=== PATIENT | male | born 1975 | race African-American/Black ===

== ENCOUNTER 2019-01-14 09:04 | Inpatient (IN) | payer OTHER ==
[2019-01-14 09:22] VITALS: BMI 23.0
[2019-01-14] MEDS ORDERED: morphine CARPU-JECT 4 MG/1 ML DISP.SYRIN IVPUSH ONE ×3 (09:42→14:18)
--- NOTE | 2019-01-14 09:50 | PDOC ---
History of Present Illness - General Chief Complaint: Pain, Acute Stated Complaint: ABDOMINAL PAIN Time Seen by Provider: 01/14/19 09:27 History Source: Patient Exam Limitations: No Limitations - History of Present Illness Initial Comments: 01/14/19 09:43 43 y/o male with PHS of asthma presents to the ED with severe abdominal pain. Patient states that the pain started around 3-4 days ago out of nowhere. he describes the pain as sharp and excruciating a 12/10 to be exact. He has never had pain like this before- he denies eating anything out of the ordinary. He denies any radiation of the pain just states that it is all throughout his entire abdomen. He has had some episodes of intermittent nausea and vomiting. He has tried taking some advil with very little relief. He has never seen a GI doctor before. He denies any alcohol use however he does smoke marijuana daily and did use K2 (last time being 2 months ago), however,there are multiple rehab reports in the EMR.He states that when he urinates his stream "splits" and it has been this way for the past few months. He denies any sick contacts or recent travel and has had no recent illnesses. 01/14/19 09:50 Timing/Duration: getting worse Severity: severe Associated Symptoms: reports: diaphoresis, nausea/vomiting. denies: chest pain Past History - Travel Traveled outside of the country in the last 30 days: No Close contact w/someone who was outside of country & ill: No - Past Medical History Allergies/Adverse Reactions: Allergies Allergy/AdvReac Type Severity Reaction Status Date / Time No Known Allergies Allergy Verified 01/14/19 09:10 Home Medications: Ambulatory Orders NK [No Known Home Medication] 01/14/19 Asthma: Yes COPD: No - Family Disease History Family Disease History: Diabetes: Father, Mother - Suicide/Smoking/Psychosocial Hx Smoking History: Current every day smoker Have you smoked in the past 12 months: Yes Number of Cigarettes Smoked Daily: 5 Information on smoking cessation initiated: Yes Hx Alcohol Use: No Drug/Substance Use Hx: Yes Substance Use Type: Marijuana (daily) Hx Substance Use Treatment: Yes Review of Systems - Review of Systems Able to Perform ROS?: Yes Is the patient limited Turkish proficient: No Constitutional: Yes: Diaphoresis Respiratory: No: Cough, Shortness of Breath Cardiac (ROS): No: Chest Pain, Syncope ABD/GI: Yes: Diarrhea, Vomiting, Other (severe abdominal pain) : Yes: Other (urine stream splits ). No: Burning, Dysuria Musculoskeletal: No: Muscle Pain Neurological: No: Headache, Dizziness *Physical Exam - Vital Signs Last Vital Signs Temp Pulse Resp BP Pulse Ox 98.1 F 83 22 H 152/109 H 100 01/14/19 09:15 01/14/19 09:15 01/14/19 09:15 01/14/19 09:15 01/14/19 09:15 - Physical Exam General Appearance: Yes: Severe Distress Neck: positive: Normal Thyroid Respiratory/Chest: positive: Lungs Clear, Normal Breath Sounds Cardiovascular: positive: Regular Rhythm, Regular Rate, S1, S2 Gastrointestinal/Abdominal: positive: Tender (severe tenderness), Guarding Musculoskeletal: negative: CVA Tenderness Integumentary: positive: Diaphoresis Neurologic: positive: Fully Oriented, Alert ED Treatment Course - LABORATORY CBC & Chemistry Diagram: 01/14/19 09:40 01/14/19 09:40 - RADIOLOGY Radiology Studies Ordered: Category Date Time Status ABDOMEN & PELVIS CT WITH CONTR [CT] Stat CT Scan 01/14/19 09:41 Ordered Medical Decision Making - Medical Decision Making 01/14/19 09:55 cbc/cmp/lipase/lactcic acid/ UA and utox ab/pelvis CT zofran/pepcid/malox/morphine 01/14/19 09:56 *DC/Admit/Observation/Transfer Diagnosis at time of Disposition: Pneumoperitoneum, Perforated abdominal viscus - Discharge Dispostion Condition at time of disposition: Guarded - Referrals - Patient Instructions - Post Discharge Activity
[2019-01-14] MEDS ORDERED: FAMOTIDINE 20 MG/50 ML IVPB 20 MG/50 ML MG IVPB ONE ×2 (09:55→10:05)
[2019-01-14] MEDS ORDERED: ONDANSETRON 4 MG/2 ML VIAL IVPUSH ONE (09:55)
[2019-01-14] MEDS ORDERED: ONDANSETRON 4 MG/2 ML VIAL ONE (09:56)
[2019-01-14] MEDS ORDERED: MAG HYDROX/AL HYDROX/SIMETH -MYLANTA- ORAL SUSPENSION PO ONE (09:56)
[2019-01-14] MEDS ORDERED: morphine SULFATE 4 MG/ML VIAL ONE ×2 (09:56→14:54)
[2019-01-14] MEDS ORDERED: MAG HYDROX/AL HYDROX/SIMETH 30 ML UNIT-DOSE CUP ONE (09:56)
--- NOTE | 2019-01-14 10:06 | PDOC ---
Attending Attestation - Resident Resident Name: Shirley Osborne - ED Attending Attestation I have performed the following: I have examined & evaluated the patient, The case was reviewed & discussed with the resident, I agree w/resident's findings & plan, Exceptions are as noted - HPI HPI: 01/14/19 10:01 43 yo male h/o substance abuse ( K2 and THC ) currently relasped last smoked yesterday here today c/o diffuse abd pain. states pain is constant severe, since last pm mostly upper abd. did have 2 episodes of n/v today. all nonbloody nonbilious. no change to bm. no mod factors. describes subjective f/c. also c/ o mild intermittent dysuria and that urine " splits" has been happening for 2 mo. states was recently tested for HIV and was negative. no h/;o renal colic. no etoh use. denies other drug use or withdrawal. - Physicial Exam PE: 01/14/19 10:06 awake alert moaning in pain, mildly diaphoretic. dry mucous membranes. lungs clear bilaterlaly heart rrr no abd soft mild epigastric ttp. no rebound no guarding. ext wwp no edema. no rash no edema. - Medical Decision Making 01/14/19 10:07 43 yo male here with c/o abd pain. differential renal colic, gastritis, withdrawal syndrome, uti pyelo, pancreatitis. biliary colic. plan focused ED us , renal and gb and aorta. ct a/p labs pain control pepcid and zofran. focused ED us renal indication: abd pain/ dysuria. focused ED us renal, no hydronephrosis bilaterally . normal size kidneys . bladder nondistended. impression: normal kidneys focused ED US aorta, indication abd pain aorta scanned in two planes. measurements taken at proximal near celiac trunk, mid aorta, and distal aorta. all measurements <2cm. no AAA normal aorta. gallbladder scanned in two planes, indication epigastric pain. no stones. no wall thickening no wall edema. normal cbd. neg sonographic rodríguez' s. cbd measured 2 mm anterior gallbladder wall was 3 mm. impression: normal gallbladder.
[2019-01-14 10:12] LABS: BASO % 0.5 % (0-2.0); EOS % 0.7 % (0-4.5); HEMATOCRIT 43.1 % (35.4-49); HEMOGLOBIN 14.3 GM/dL (11.7-16.9); LYMPH % 17.2 % (8-40); MCH 29.3 pg (25.7-33.7); MCHC 33.2 g/dl (32.0-35.9); MEAN CELL VOLUME 88.4 fl (80-96); MEAN PLT VOLUME 7.7 fl (7.5-11.1); MONO % 5.7 % (3.8-10.2); NEUT % 75.9 % (42.8-82.8); PLATELET COUNT 274 K/MM3 (134-434); RBC 4.88 M/mm3 (4.00-5.60); RDW 15.8 % (11.9-15.9); WHITE BLOOD COUNT 7.2 K/mm3 (4.0-10.0)
[2019-01-14 10:51] LABS: ALBUMIN 3.6 g/dl (3.4-5.0); ALK PHOS 81 U/L (45-117); ANION GAP 4 MMOL/L (8-16); BILIRUBIN,TOTAL 0.3 mg/dL (0.2-1); BLOOD UREA NITROGEN 17 mg/dL (7-18); CALCIUM 8.9 mg/dL (8.5-10.1); CHLORIDE 103 mmol/L (98-107); CO2 29 mmol/L (21-32); CREATININE 1.2 mg/dL (0.55-1.3); GLUCOSE,RANDOM 121 mg/dL (74-106); POTASSIUM 4.5 mmol/L (3.5-5.1); SGOT/AST 20 U/L (15-37); SGPT/ALT 28 U/L (13-61); SODIUM 136 mmol/L (136-145); TOT PROT 7.5 g/dl (6.4-8.2)
[2019-01-14 10:53] LABS: EPI CELLS 2.5 /HPF (0-5/HPF); PH,URINE 5.5 (5.0-8.0); URINE APPEARANCE CLEAR; URINE BACTERIA 7.8 /hpf (NEGATIVE); URINE BILIRUBIN NEGATIVE (NEGATIVE); URINE CASTS 17 /lpf (0-8); URINE COLOR DK YELLOW; URINE GLUCOSE (UA) NEGATIVE (NEGATIVE); URINE KETONE TRACE (NEGATIVE); URINE LEUK ESTERASE NEGATIVE (NEGATIVE); URINE NITRITE NEGATIVE (NEGATIVE); URINE PROTEIN 1+ (NEGATIVE); URINE RBC 4 /hpf (0-4); URINE WBC 2 /hpf (0-5)
[2019-01-14 11:21] LABS: COCAINE, UR NEGATIVE ng/ml (CUTOFF=300); METHADONE, UR NEGATIVE ng/ml (CUTOFF=300); PHENCYCLIDINE,URINE NEGATIVE ng/ml (CUTOFF=25); URINE AMPHETAMINES NEGATIVE ng/ml (CUTOFF=500); URINE BARBITURATES NEGATIVE ng/ml (CUTOFF=200); URINE BENZODIAZEPINES NEGATIVE ng/ml (CUTOFF=200); YEAST NONE SEEN (NEGATIVE)
[2019-01-14 11:26] LABS: OPIATES, URI POSITIVE ng/ml (CUTOFF=300)
[2019-01-14] MEDS ORDERED: SODIUM CHLORIDE 1,000 ML IV STA (11:38)
--- NOTE | 2019-01-14 12:10 | EKG ---
Test Reason : Blood Pressure : / mmHG Vent. Rate : 072 BPM Atrial Rate : 072 BPM P-R Int : 156 ms QRS Dur : 098 ms QT Int : 368 ms P-R-T Axes : 082 041 064 degrees QTc Int : 402 ms NORMAL SINUS RHYTHM INCOMPLETE RIGHT BUNDLE BRANCH BLOCK BORDERLINE ECG NO PREVIOUS ECGS AVAILABLE Confirmed by OSWALD MEDINA, JUJU ([id number]) on 01/14/2019 12:10:16 PM Referred By: Confirmed By:JUJU AKERS MD
[2019-01-14] MEDS ORDERED: SODIUM CHLORIDE 0.9% 500 ML INFUS.BAG IV ONE (12:39)
[2019-01-14] MEDS ORDERED: PIPERACILLIN/TAZOB 4.5 GM 4.5 GM in DEXTROSE 5%-WATER 100 ML IVPB ONE (12:40)
[2019-01-14] MEDS ORDERED: SODIUM CHLORIDE 1,000 ML IV SCH ×2 (12:45→20:43)
[2019-01-14] MEDS ORDERED: PIPERACILLIN/TAZOB 4.5 GM 4.5 GM/100 ML BAG IVPB ONE (12:51)
--- NOTE | 2019-01-14 13:15 | PDOC ---
*Physical Exam - Vital Signs Last Vital Signs Temp Pulse Resp BP Pulse Ox 98.0 F 165 H 18 137/99 96 01/14/19 13:05 01/14/19 13:05 01/14/19 13:05 01/14/19 13:05 01/14/19 13:05 - Physical Exam General Appearance: Yes: Severe Distress HEENT: positive: Normal ENT Inspection Neck: positive: Supple Respiratory/Chest: positive: Lungs Clear Cardiovascular: positive: Regular Rhythm, Regular Rate, S1, S2 Vascular Pulses: Dorsalis-Pedis (R): 2+, Doralis-Pedis (L): 2+ Gastrointestinal/Abdominal: positive: Tender (Diffusely), Guarding. negative: Rebound Rectal Exam: positive: deferred Lymphatic: negative: Adenopathy Musculoskeletal: positive: Normal Inspection Extremity: positive: Normal Capillary Refill, Normal Inspection Integumentary: positive: Normal Color, Dry, Warm Neurologic: positive: Fully Oriented, Alert, Normal Mood/Affect, Normal Response ED Treatment Course - LABORATORY CBC & Chemistry Diagram: 01/14/19 09:40 01/14/19 09:40 - ADDITIONAL ORDERS Additional order review: Laboratory Results 01/14/19 01/14/19 01/14/19 10:35 10:35 10:04 Sodium Potassium Chloride Carbon Dioxide Anion Gap BUN Creatinine Creat Clearance w eGFR Random Glucose Lactic Acid 2.3 H* Calcium Total Bilirubin AST ALT Alkaline Phosphatase Total Protein Albumin Lipase Urine Color Dk yellow Urine Appearance Clear Urine pH 5.5 Ur Specific [place] 1.039 H Urine Protein 1+ H Urine Glucose (UA) Negative Urine Ketones Trace H Urine Blood Negative Urine Nitrite Negative Urine Bilirubin Negative Urine Urobilinogen 1.0 Ur Leukocyte Esterase Negative Urine WBC (Auto) 2 Urine RBC (Auto) 4 Urine Casts (Auto) 17 U Epithel Cells (Auto) 2.5 Urine Bacteria (Auto) 7.8 Urine Yeast (Auto) None seen Opiates Screen Positive A* Methadone Screen Negative Barbiturate Screen Negative Phencyclidine Screen Negative Ur Amphetamines Screen Negative MDMA (Ecstasy) Screen Negative Benzodiazepines Screen Negative Cocaine Screen Negative U Marijuana (THC) Screen Positive A* 01/14/19 01/14/19 10:04 09:40 Sodium 136 Potassium 4.5 Chloride 103 Carbon Dioxide 29 Anion Gap 4 L BUN 17 Creatinine 1.2 Creat Clearance w eGFR 65.77 Random Glucose 121 H Lactic Acid Calcium 8.9 Total Bilirubin 0.3 AST 20 ALT 28 Alkaline Phosphatase 81 Total Protein 7.5 Albumin 3.6 Lipase 186 Urine Color Urine Appearance Urine pH Ur Specific [place] Urine Protein Urine Glucose (UA) Urine Ketones Urine Blood Urine Nitrite Urine Bilirubin Urine Urobilinogen Ur Leukocyte Esterase Urine WBC (Auto) Urine RBC (Auto) Urine Casts (Auto) U Epithel Cells (Auto) Urine Bacteria (Auto) Urine Yeast (Auto) Opiates Screen Methadone Screen Barbiturate Screen Phencyclidine Screen Ur Amphetamines Screen MDMA (Ecstasy) Screen Benzodiazepines Screen Cocaine Screen U Marijuana (THC) Screen 01/14/19 09:40 RBC 4.88 MCV 88.4 MCHC 33.2 RDW 15.8 MPV 7.7 Neutrophils % 75.9 Lymphocytes % 17.2 Monocytes % 5.7 Eosinophils % 0.7 Basophils % 0.5 - Medications Given in the ED: ED Medications Discontinued Medications Generic Name Dose Route Start Last Admin Trade Name Freq PRN Reason Stop Dose Admin Al Hydroxide/Mg Hydroxide 30 ml 01/14/19 09:56 01/14/19 10:03 Mylanta Suspension - PO 01/14/19 09:57 30 ml ONCE ONE Administration Famotidine/Sodium Chloride 20 mg in 50 mls @ 100 mls/hr 01/14/19 09:55 10:30 Pepcid 20 Mg Premixed Ivpb - IVPB 01/14/19 10:24 100 mls/hr ONCE ONE Administration Sodium Chloride 1,000 mls @ 1,000 mls/hr 01/14/19 11:38 01/14/19 11:42 Normal Saline - IV 01/14/19 12:37 1,000 mls/hr ASDIR STA Administration Piperacillin Sod/Tazobactam 100 mls @ 200 mls/hr 01/14/19 12:40 01/14/19 13: 01 Sod 4.5 gm/ Dextrose IVPB 01/14/19 13:09 200 mls/hr ONCE ONE Administration Protocol Morphine Sulfate 4 mg 01/14/19 09:42 01/14/19 10:03 Morphine Injection - IVPUSH 01/14/19 09:43 4 mg ONCE ONE Administration Morphine Sulfate 4 mg 01/14/19 12:36 01/14/19 12:50 Morphine Injection - IVPUSH 01/14/19 12:37 4 mg ONCE ONE Administration Ondansetron HCl 4 mg 01/14/19 09:55 01/14/19 10:03 Zofran Injection IVPUSH 01/14/19 09:56 4 mg ONCE ONE Administration Sodium Chloride 1,000 ml 01/14/19 12:39 01/14/19 12:50 Normal Saline - IV 01/14/19 12:40 1,000 ml ONCE ONE Administration Medical Decision Making - Medical Decision Making Patient signed out to me pending CTAP CT[facility] shows [facility] Making patient NPO, giving morphine for pain control, hydrating with IV fluids, and giving zosyn Will admit patient to hospital NG tube placed in patient X-ray ordered to confirm placement. *DC/Admit/Observation/Transfer Diagnosis at time of Disposition: Pneumoperitoneum, Perforated abdominal viscus - Discharge Dispostion Condition at time of disposition: Guarded Decision to Admit order: Yes - Referrals - Patient Instructions - Post Discharge Activity
[2019-01-14 13:42] LABS: INR 1.06 (0.83-1.09); PROTHROMBIN TIME (PATIENT) 12.5 SEC (9.7-13.0)
[2019-01-14 13:44] LABS: ACTIVATED PTT 28.2 SECONDS (25.2-36.5)
[2019-01-14] MEDS ORDERED: ONDANSETRON 4 MG/2 ML VIAL IVPUSH PRN ×2 (14:33→20:43)
[2019-01-14] MEDS ORDERED: LACTATED RINGERS SOLUTION 1,000 ML IV SCH (14:45)
[2019-01-14] MEDS ORDERED: HYDROmorphone *PCA* 10MG/50ML DISP.SYRIN PCA SCH (14:45)
[2019-01-14] MEDS ORDERED: SUCCINYLCHOLINE CHLORIDE 200 MG/10 ML VIAL ONE ×2 (15:15→18:41)
[2019-01-14] MEDS ORDERED: LIDOCAINE HCL/PF 2% SDV 5ML VIAL ONE ×2 (15:15→19:28)
[2019-01-14] MEDS ORDERED: ROCURONIUM BROMIDE 50 MG/5 ML VIAL ONE ×2 (15:16→18:41)
--- NOTE | 2019-01-14 15:42 | HP ---
Admitting History and Physical - Primary Care Physician PCP: Abdi Basilio - Admission Chief Complaint: came in for abdominal pain History of Present Illness: 43 yo male h/o substance abuse ( K2 and THC ) currently relasped last smoked yesterday here today c/o diffuse abd pain. states pain is constant severe, since last pm mostly upper abd. did have 2 episodes of n/v today. all nonbloody nonbilious. no change to bm. no mod factors. describes subjective f/c. also c/ o mild intermittent dysuria and that urine " splits" has been happening for 2 mo. states was recently tested for HIV and was negative. no h/;o renal colic. no etoh use. denies other drug use or withdrawal. per patient he has been having intermittent abdominal pain for a few days but today he had severe excruciating abdominal pain so came to the ER . in ER ct scan pneumoperitoneum Morphine, zosyn,ivf, famotidine History Source: Patient - Smoking History Smoking history: Current every day smoker Have you smoked in the past 12 months: Yes Aproximately how many cigarettes per day: 5 - Alcohol/Substance Use Hx Alcohol Use: No Home Medications - Allergies Allergies/Adverse Reactions: Allergies Allergy/AdvReac Type Severity Reaction Status Date / Time No Known Allergies Allergy Verified 01/14/19 09:10 - Home Medications Home Medications: Ambulatory Orders NK [No Known Home Medication] 01/14/19 Review of Systems - Review of Systems Gastrointestinal: reports: Abdominal Pain Physical Examination Vital Signs: Vital Signs Temperature 99.4 F 01/14/19 14:54 Pulse Rate 71 01/14/19 14:54 Respiratory Rate 18 01/14/19 14:54 Blood Pressure 151/97 01/14/19 14:54 O2 Sat by Pulse Oximetry (%) 98 01/14/19 15:04 Constitutional: Yes: Mild Distress Cardiovascular: Yes: Regular Rate and Rhythm, S1, S2 Respiratory: Yes: CTA Bilaterally Gastrointestinal: Yes: Other (guarding rigidity) Edema: No Neurological: Yes: Alert, Oriented Labs: CBC, BMP 01/14/19 09:40 01/14/19 09:40 Imaging - Results Cat Scan: Report Reviewed (pneumoperitoneum) Problem List - Problems (1) Perforated abdominal viscus Assessment/Plan: NPO ng tube to low suction iv pain control iv abx scd surgical consult- surgery OR today spoke to dr Fracisco velasco lactic acid iv abx- zosyn ID consult Code(s): [id number] -
[2019-01-14] MEDS ORDERED: morphine SULFATE 4 MG/ML VIAL IVPUSH PRN ×2 (15:51→20:43)
[2019-01-14] MEDS ORDERED: MIDAZOLAM HCL 2 MG/2 ML SINGLE DOSE VIAL ONE (17:46)
[2019-01-14] MEDS ORDERED: fentaNYL CITRATE 250 MCG/5 ML VIAL ONE (17:46)
[2019-01-14] MEDS ORDERED: PROPOFOL 20 ML ONE ×3 (17:46→18:41)
[2019-01-14] MEDS ORDERED: KETOROLAC TROMETHAMINE 30 MG/1 ML VIAL ONE ×2 (17:49→20:17)
[2019-01-14] MEDS ORDERED: DEXAMETHASONE SOD PHOSPHATE 4 MG/1 ML VIAL ONE ×2 (17:49→18:40)
[2019-01-14] MEDS ORDERED: PIPERACILLIN/TAZOB 4.5 GM 4.5 GM in DEXTROSE 5%-WATER 100 ML IVPB SCH ×2 (18:00→21:00)
--- NOTE | 2019-01-14 18:00 | CONSULT ---
Consult Consult Specialty:: Surgery: Referred by:: Reason for Consultation:: Perotonitis, perforated viscus. - History of Present Illness Chief Complaint: C/O Sudden onset of abdominal pain this morning after he celebrated his drug withdrawal, program by using marijuana. Pain is predominantly in the upper abdomen. Pain was sudden and progressed rapidly to diiffuse pain. - History Source History Provided By: Patient Limitations to Obtaining History: No Limitations - Alcohol/Substance Use Hx Alcohol Use: No - Smoking History Smoking history: Current every day smoker Have you smoked in the past 12 months: Yes Aproximately how many cigarettes per day: 5 Home Medications - Allergies Allergies/Adverse Reactions: Allergies Allergy/AdvReac Type Severity Reaction Status Date / Time No Known Allergies Allergy Verified 01/14/19 09:10 - Home Medications Home Medications: Ambulatory Orders NK [No Known Home Medication] 01/14/19 Physical Exam Vital Signs: Vital Signs Temperature 100.6 F H 01/14/19 16:14 Pulse Rate 84 01/14/19 15:42 Respiratory Rate 18 01/14/19 15:58 Blood Pressure 149/91 01/14/19 15:42 O2 Sat by Pulse Oximetry (%) 97 01/14/19 15:58 Gastrointestinal: Yes: Other (Diffusely tender and rigid, no abdominal distention. No hernia.) Labs: CBC, BMP 01/14/19 09:40 01/14/19 09:40 Imaging - Results Cat Scan: Report Reviewed, Image Reviewed (Free air in the peritoneal cavity, with fluid in abdomen.) Problem List - Problems (1) Perforated abdominal viscus Code(s): OEX4273 - (2) Pneumoperitoneum Code(s): K66.8 - OTHER SPECIFIED DISORDERS OF PERITONEUM (3) Acute abdomen Code(s): R10.0 - ACUTE ABDOMEN (4) Peritonitis Code(s): K65.9 - PERITONITIS, UNSPECIFIED Assessment/Plan Plan : Hydration , IV fluids, antibiotics. Laparascopy , possible laparotomy , possible colectomy / colostomy. Patient is explained of the procedure , dependent upon the pathological findings. Risks , benefits and complications expalined, including persistent infection , wound dehiscence etc.
[2019-01-14] MEDS ORDERED: KETAMINE HCL 200 MG/20 ML VIAL ONE (19:28)
[2019-01-14] MEDS ORDERED: NEOSTIGMINE METHYLSULFATE 0.5 MG/ML - 10 ML MDV ONE (19:30)
[2019-01-14] MEDS ORDERED: GLYCOPYRROLATE 0.2 MG/1 ML VIAL ONE (19:31)
--- NOTE | 2019-01-14 20:01 | OP ---
Operative Note - Note: Operative Date: 01/14/19 Pre-Operative Diagnosis: Perforated viscus. Peritonitis. Pneumoperitoneum. Operation: Diagnostic laparoscopy ,. Laparotomy , plication and omental overlay of perforated duodenal ulcer and peritoneal wash out. Findings: Perforated ulcer on anterior wall of the first portion of the duodenum. Intrabadominal abscesses. Post-Operative Diagnosis: Other (Perforation of anterior wall of the first portion of the duodenum, peritonitis with intraabdominal abscess.) Surgeon: Ibrahima Yap Scientist/Engineer: Kamran Hurst Anesthesia: General Specimens Removed: Fluid from peritoneal cavity for culture. Estimated Blood Loss (mls): 25 Drains & Tubes with Location: No.10 BRIAN drain left in right subhepatic space. Operative Report Dictated: Yes
[2019-01-14] MEDS ORDERED: ACETAMINOPHEN INJECTION 100 ML IVPB ONE (20:17)
[2019-01-14] MEDS ORDERED: HYDROmorphone *PCA* 10MG/50ML DISP.SYRIN PCA ONE (20:26)
[2019-01-14] MEDS: HYDROmorphone *PCA* 10MG/50ML DISP.SYRIN PCA SCH (20:30)
--- NOTE | 2019-01-14 21:03 | SURG ---
Surgery Respooler Note Respooler: Kamran Hurst PA-C Date of Service: 01/14/19 Diagnosis: Pneumoperitoneum secondary to perforated viscous Procedure: Diagnostic laparoscopy, converted to laparotomy, plication and omental overlay of perforated duodenal ulcer and peritoneal wash out. I was present for the entirety of the operative procedure. For further detail, please refer to operative report. Visit type - Case Type Case Type: ED Admission - Emergency Emergency Visit: Yes ED Registration Date: 01/14/19 Care time: The patient presented to the Emergency Department on the above date and was hospitalized for further evaluation of their emergent condition. - New patient This patient is new to me today: Yes Date on this admission: 01/14/19
[2019-01-14] MEDS: LACTATED RINGERS SOLUTION 1,000 ML IV SCH (22:20)
[2019-01-15] MEDS ORDERED: PIPERACILLIN/TAZOBACTAM 4.5 GM VIAL IVPB ONE ×3 (02:43→18:04)
[2019-01-15] MEDS ORDERED: DEXTROSE 5%-WATER 100 ML IVPB ONE ×3 (02:43→18:04)
[2019-01-15] MEDS: PIPERACILLIN/TAZOB 4.5 GM 4.5 GM in DEXTROSE 5%-WATER 100 ML IVPB SCH ×3 (02:46→18:06)
[2019-01-15 08:18] LABS: HEMATOCRIT 37.6 % (35.4-49); HEMOGLOBIN 12.5 GM/dL (11.7-16.9); MCH 28.6 pg (25.7-33.7); MCHC 33.2 g/dl (32.0-35.9); MEAN CELL VOLUME 86.4 fl (80-96); MEAN PLT VOLUME 7.8 fl (7.5-11.1); PLATELET COUNT 278 K/MM3 (134-434); RBC 4.35 M/mm3 (4.00-5.60); WHITE BLOOD COUNT 9.9 K/mm3 (4.0-10.0)
[2019-01-15 08:27] LABS: INR 1.54 (0.83-1.09); PROTHROMBIN TIME (PATIENT) 18.2 SEC (9.7-13.0)
[2019-01-15 08:44] LABS: ALBUMIN 2.4 g/dl (3.4-5.0); ALK PHOS 48 U/L (45-117); ANION GAP 5 MMOL/L (8-16); BILIRUBIN,TOTAL 0.8 mg/dL (0.2-1); BLOOD UREA NITROGEN 20 mg/dL (7-18); CALCIUM 8.3 mg/dL (8.5-10.1); CHLORIDE 105 mmol/L (98-107); CO2 27 mmol/L (21-32); CREATININE 1.1 mg/dL (0.55-1.3); GLUCOSE,RANDOM 92 mg/dL (74-106); MAGNESIUM 1.9 mg/dL (1.8-2.4); PHOSPHOROUS 3.8 mg/dL (2.5-4.9); POTASSIUM 4.8 mmol/L (3.5-5.1); SGOT/AST 44 U/L (15-37); SGPT/ALT 47 U/L (13-61); SODIUM 136 mmol/L (136-145); TOT PROT 5.2 g/dl (6.4-8.2)
--- NOTE | 2019-01-15 11:15 | PN ---
Progress Note (short form) - Note Progress Note: ID CONSULT DICTATED POD#1 EXPLORATORY LAP/REPAIR OF PERFORATED DU PERITONITIS AWAIT C/S CONTINUE ZOSYN
--- NOTE | 2019-01-15 11:55 | CONS ---
INFECTIOUS DISEASE CONSULTATION DATE OF CONSULTATION: DATE OF DICTATION: 01/15/2019 HISTORY OF PRESENT ILLNESS: The patient is a 43-year-old male who is evaluated for peritonitis. He was admitted to the hospital with a 2-3-day history of abdominal pain. The patient reports smoking marijuana to celebrate his 2-month anniversary of abstinence. He developed worsening abdominal pain associated with nausea. He presented to the emergency room where a CAT scan of the abdomen and pelvis was performed and showed pneumoperitoneum. The patient was taken to the operating room on January 14, 2019, where he underwent an exploratory laparotomy. Operative findings included a perforated duodenal ulcer, pneumoperitoneum, and peritonitis. His hospital course has been complicated by low-grade fever. At the present time, he is awake and alert. He is postoperative day number 1. He has an NG tube in place. PAST MEDICAL HISTORY: Positive for asthma and polysubstance abuse. ALLERGIES: No known allergies. LABORATORY DATA: White count 9.9, platelets 278, BUN 20, creatinine 1.1, lactic acid 2.3. Urinalysis: White cells 2; culture is pending. PHYSICAL EXAMINATION: General: On exam, he is awake and alert, no acute distress. Vital Signs: T-maximum 100.6, blood pressure 139/64, pulse 84, regular, respirations 19 per minute. Eyes: Sclerae are anicteric. Throat: NG tube is in place. Heart: Heart sounds S1, S2. Lungs: Clear. Abdomen: Soft. Positive incisional tenderness. Surgical dressing in place postoperatively. Extremities: Negative for edema. IMPRESSION: 1. Postoperative day number 1 exploratory laparotomy for perforated duodenal ulcer. 2. Peritonitis. 3. History of polysubstance abuse. Await cultures. Empiric coverage gastrointestinal pathogens with Zosyn. Surgical followup. HIV testing, if status not documented. SYMONE THEODORE M.D. [id number]
--- NOTE | 2019-01-15 12:03 | PN ---
Progress Note, Physician - Current Medication List Current Medications: Active Medications Hydromorphone HCl (Dilaudid Sailor -) 10 mg OPEN TENTER OPERATOR OPEN TENTER OPERATOR JAYCE; Protocol Stop: 01/21/19 14:33 Last Admin: 01/14/19 20:30 Dose: 10 mg Lactated Ringer's (Lactated Ringers Solution) 1,000 mls @ 75 mls/hr IV ASDIR JAYCE Last Admin: 01/14/19 22:20 Dose: 250 mls Piperacillin Sod/Tazobactam (Sod 4.5 gm/ Dextrose) 100 mls @ 200 mls/hr IVPB Q8H-IV JAYCE; Protocol Last Admin: 01/15/19 02:46 Dose: 200 mls/hr - Objective Vital Signs: Vital Signs Temperature 98.5 F 01/15/19 11:00 Pulse Rate 75 01/15/19 11:00 Respiratory Rate 16 01/15/19 11:00 Blood Pressure 141/97 01/15/19 11:00 O2 Sat by Pulse Oximetry (%) 99 01/15/19 08:44 Labs: CBC, BMP 01/15/19 07:00 01/15/19 07:00 INR, PTT INR 1.54 (0.83-1.09) H 01/15/19 07:00 Problem List - Problems (1) Perforated abdominal viscus Code(s): [id number] - (2) Pneumoperitoneum Code(s): K66.8 - OTHER SPECIFIED DISORDERS OF PERITONEUM (3) Acute abdomen Code(s): R10.0 - ACUTE ABDOMEN (4) Peritonitis Code(s): K65.9 - PERITONITIS, UNSPECIFIED Assessment/Plan Surgery: Patient is alert and oriented. He is informed of the operative findings. Drain is draining serous fluid. Abdomen is soft . Continue antibiotics. IV fluids. Monitor electrolytes. Will D/C Oliveira catheter.
[2019-01-15] MEDS ORDERED: PIPERACILLIN/TAZOB 4.5 GM 4.5 GM in DEXTROSE 5%-WATER 100 ML IVPB SCH (15:00)
--- NOTE | 2019-01-15 15:11 | PN ---
Progress Note, Physician Chief Complaint: Pneumoperitoneum Perforated Abdominal Viscus Abdominal Pain S/p History of Present Illness: Previous notes and events reviewed awake and alert NAD patient states pain is controlled denies BM or passing flatus POD #1 diagnostic laparoscopy, laparotomy, plication and omental overlay of perforated duodenal ulcer - Current Medication List Current Medications: Active Medications Hydromorphone HCl (Dilaudid Metal Roofer -) 10 mg BENCH INSPECTOR BENCH INSPECTOR JAYCE; Protocol Stop: 01/21/19 14:33 Last Admin: 01/14/19 20:30 Dose: 10 mg Lactated Ringer's (Lactated Ringers Solution) 1,000 mls @ 75 mls/hr IV ASDIR JAYCE Last Admin: 01/14/19 22:20 Dose: 250 mls Piperacillin Sod/Tazobactam (Sod 4.5 gm/ Dextrose) 100 mls @ 200 mls/hr IVPB Q8H-IV JAYCE; Protocol Last Admin: 01/15/19 11:00 Dose: 200 mls/hr - Objective Vital Signs: Vital Signs Temperature 98.7 F 01/15/19 14:21 Pulse Rate 79 01/15/19 14:21 Respiratory Rate 16 01/15/19 11:00 Blood Pressure 116/81 01/15/19 14:21 O2 Sat by Pulse Oximetry (%) 99 01/15/19 08:44 Constitutional: Yes: No Distress, Calm Eyes: Yes: Conjunctiva Clear HENT: Yes: Atraumatic Cardiovascular: Yes: Regular Rate and Rhythm Respiratory: Yes: Regular, CTA Bilaterally Gastrointestinal: Yes: Normal Bowel Sounds, Soft, Other (BRIAN tube noted with serosanguinous drainage) Musculoskeletal: Yes: WNL Extremities: Yes: WNL Edema: No Wound/Incision: Yes: Dressing Dry and Intact Neurological: Yes: Alert, Oriented Psychiatric: Yes: Alert, Oriented Labs: CBC, BMP 01/15/19 07:00 01/15/19 07:00 INR, PTT INR 1.54 (0.83-1.09) H 01/15/19 07:00 Microbiology 01/14/19 10:35 Urine - Urine Clean Catch Urine Culture - Final NO GROWTH OBTAINED - ....Imaging Chest X-ray: Report Reviewed X-ray: Report Reviewed Cat Scan: Report Reviewed Problem List - Problems (1) Perforated abdominal viscus Assessment/Plan: -POD #1 diagnostic laparoscopy, laparotomy, plication and omental overlay of perforated duodenal ulcer -Surgery and ID on board -BENCH INSPECTOR pump for pain management -NGT to LCS with bile colored output -NPO -IV Zosyn -pending body fluid culture -IV hydration -monitor BRIAN drainage output Code(s): [id number] - (2) Pneumoperitoneum Assessment/Plan: see above Code(s): K66.8 - OTHER SPECIFIED DISORDERS OF PERITONEUM Assessment/Plan see problem list dvt ppx
--- NOTE | 2019-01-15 15:33 | PN ---
Progress Note (short form) - Note Progress Note: POST OP DAY#1.S/P LAPRATOMY WITH GASTRIC REPAIR UNDER GA UNEVENTFUL.PTIENT STABLE AND LOOKING COMFORTABLE BUT C/O PAIN SCORE OF 5-6/10 ON DILAUDID DENIER CONTROL OPERATOR.WILL CONTINUE DENIER CONTROL OPERATOR TODAY AND WILL F/U TOMORROW.
[2019-01-15] MEDS: LACTATED RINGERS SOLUTION 1,000 ML IV SCH (18:07)
[2019-01-15] MEDS: HYDROmorphone *PCA* 10MG/50ML DISP.SYRIN PCA SCH (23:08)
[2019-01-16 07:30] LABS: HEMATOCRIT 35.2 % (35.4-49); HEMOGLOBIN 11.7 GM/dL (11.7-16.9); MCH 28.5 pg (25.7-33.7); MCHC 33.2 g/dl (32.0-35.9); MEAN PLT VOLUME 8.4 fl (7.5-11.1); PLATELET COUNT 280 K/MM3 (134-434); RBC 4.09 M/mm3 (4.00-5.60); RDW 15.8 % (11.9-15.9); WHITE BLOOD COUNT 9.4 K/mm3 (4.0-10.0)
[2019-01-16 08:08] LABS: ALBUMIN 2.4 g/dl (3.4-5.0); ALK PHOS 46 U/L (45-117); ANION GAP 7 MMOL/L (8-16); BILIRUBIN,TOTAL 0.4 mg/dL (0.2-1); BLOOD UREA NITROGEN 23 mg/dL (7-18); CALCIUM 8.6 mg/dL (8.5-10.1); CHLORIDE 103 mmol/L (98-107); CO2 26 mmol/L (21-32); CREATININE 1.2 mg/dL (0.55-1.3); GLUCOSE,RANDOM 81 mg/dL (74-106); POTASSIUM 4.6 mmol/L (3.5-5.1); SGOT/AST 35 U/L (15-37); SGPT/ALT 34 U/L (13-61); SODIUM 136 mmol/L (136-145); TOT PROT 5.4 g/dl (6.4-8.2)
--- NOTE | 2019-01-16 09:36 | PN ---
Progress Note, Physician Chief Complaint: AWAKE ALERT EVENTS AND NOTES REVIEWED STATES HE IS HUNGRY AND WANTS TO EAT - Current Medication List Current Medications: Active Medications Hydromorphone HCl (Dilaudid Account Manager Sales Representative -) 10 mg HIGH SCHOOL AUTO REPAIR TEACHER HIGH SCHOOL AUTO REPAIR TEACHER JAYCE; Protocol Stop: 01/21/19 14:33 Last Admin: 01/15/19 23:08 Dose: 10 mg Lactated Ringer's (Lactated Ringers Solution) 1,000 mls @ 75 mls/hr IV ASDIR JAYCE Last Admin: 01/15/19 18:07 Dose: 75 mls/hr Piperacillin Sod/Tazobactam (Sod 4.5 gm/ Dextrose) 100 mls @ 200 mls/hr IVPB Q8H-IV JAYCE; Protocol Last Admin: 01/15/19 18:06 Dose: 200 mls/hr - Objective Vital Signs: Vital Signs Temperature 98.9 F 01/16/19 08:00 Pulse Rate 62 01/16/19 08:00 Respiratory Rate 17 01/16/19 08:00 Blood Pressure 122/80 01/16/19 08:00 O2 Sat by Pulse Oximetry (%) 95 01/16/19 08:26 Constitutional: Yes: No Distress Eyes: Yes: WNL HENT: Yes: WNL Neck: Yes: WNL Cardiovascular: Yes: WNL Respiratory: Yes: WNL Gastrointestinal: Yes: Soft, Tenderness Genitourinary: Yes: WNL Musculoskeletal: Yes: WNL Extremities: Yes: WNL Edema: No Peripheral Pulses WNL: Yes Integumentary: Yes: Other Wound/Incision: Yes: Dressing Dry and Intact Neurological: Yes: WNL Psychiatric: Yes: Other Labs: CBC, BMP 01/16/19 07:00 01/16/19 07:00 INR, PTT INR 1.54 (0.83-1.09) H 01/15/19 07:00 Problem List - Problems (1) Acute abdomen Code(s): R10.0 - ACUTE ABDOMEN (2) Perforated abdominal viscus Code(s): GLC4461 - (3) Peritonitis Code(s): K65.9 - PERITONITIS, UNSPECIFIED (4) Pneumoperitoneum Code(s): K66.8 - OTHER SPECIFIED DISORDERS OF PERITONEUM Assessment/Plan POD # 2 PERFORATED GI IV ABX PER ID OOB TO CHAIR DVT PROPHYLAXIS VENODYNE B/L CHECK LABS SURGERY EVAL INCENTIVE SPIROMETRY
[2019-01-16] MEDS ORDERED: PIPERACILLIN/TAZOBACTAM 4.5 GM VIAL IVPB ONE ×2 (10:05→16:59)
[2019-01-16] MEDS ORDERED: DEXTROSE 5%-WATER 100 ML IVPB ONE ×2 (10:05→17:00)
[2019-01-16] MEDS: PIPERACILLIN/TAZOB 4.5 GM 4.5 GM in DEXTROSE 5%-WATER 100 ML IVPB SCH ×2 (10:08→17:46)
--- NOTE | 2019-01-16 14:39 | PN ---
Progress Note (short form) - Note Progress Note: Anesthesia Pain round, POD#2, S/P Exp-lap, for gastric ulcer.On FACTORY MAINTENANCE MANAGER. Still NPO. C/O being hungry, in no pain, Scale 0-1/10. Surgery continues keeping the pat NPO. Continues FACTORY MAINTENANCE MANAGER. Probably D/C tomorrow.
--- NOTE | 2019-01-16 15:43 | PN ---
Progress Note, Physician - Current Medication List Current Medications: Active Medications Acetaminophen (Ofirmev Injection -) 1,000 mg IVPB Q6H PRN PRN Reason: PAIN OR FEVER Hydromorphone HCl (Dilaudid Assurance Auditor -) 10 mg WHITE SUGAR SUPERVISOR WHITE SUGAR SUPERVISOR JAYCE; Protocol Stop: 01/21/19 14:33 Last Admin: 01/15/19 23:08 Dose: 10 mg Lactated Ringer's (Lactated Ringers Solution) 1,000 mls @ 75 mls/hr IV ASDIR JAYCE Last Admin: 01/15/19 18:07 Dose: 75 mls/hr Piperacillin Sod/Tazobactam (Sod 4.5 gm/ Dextrose) 100 mls @ 200 mls/hr IVPB Q8H-IV JAYCE; Protocol Last Admin: 01/16/19 10:08 Dose: 200 mls/hr - Objective Vital Signs: Vital Signs Temperature 98.7 F 01/16/19 14:27 Pulse Rate 70 01/16/19 14:27 Respiratory Rate 17 01/16/19 14:27 Blood Pressure 125/72 01/16/19 14:27 O2 Sat by Pulse Oximetry (%) 95 01/16/19 08:26 Labs: CBC, BMP 01/16/19 07:00 01/16/19 07:00 INR, PTT INR 1.54 (0.83-1.09) H 01/15/19 07:00 Problem List - Problems (1) Perforated abdominal viscus Code(s): [id number] - (2) Pneumoperitoneum Code(s): K66.8 - OTHER SPECIFIED DISORDERS OF PERITONEUM (3) Acute abdomen Code(s): R10.0 - ACUTE ABDOMEN (4) Peritonitis Code(s): K65.9 - PERITONITIS, UNSPECIFIED Assessment/Plan Surgery: Patient is afebrile, Wound is clean, NG drainage about 300ml. Continue antibiotics. WBC is normal. No calf tenderness.
[2019-01-16] MEDS: ACETAMINOPHEN 1000 MG/100 ML VIAL (NON FORMULARY) IVPB PRN (16:05)
[2019-01-16] MEDS: LACTATED RINGERS SOLUTION 1,000 ML IV SCH (17:48)
[2019-01-17] MEDS ORDERED: DEXTROSE 5%-WATER 100 ML IVPB ONE ×3 (01:13→16:15)
[2019-01-17] MEDS ORDERED: PIPERACILLIN/TAZOBACTAM 4.5 GM VIAL IVPB ONE ×3 (01:13→16:14)
[2019-01-17] MEDS: PIPERACILLIN/TAZOB 4.5 GM 4.5 GM in DEXTROSE 5%-WATER 100 ML IVPB SCH ×3 (02:21→17:01)
[2019-01-17] MEDS: HYDROmorphone *PCA* 10MG/50ML DISP.SYRIN PCA SCH (03:55)
[2019-01-17] MEDS: LACTATED RINGERS SOLUTION 1,000 ML IV SCH (09:11)
--- NOTE | 2019-01-17 09:44 | PN ---
Progress Note (short form) - Note Progress Note: Patient stable and comfortable and has pain score of 2-3/10 on Dilauadid NURSING INFORMATICS ANALYST.Will continue NURSING INFORMATICS ANALYST today as patient still is NPO.Will f/u tomorrow.
--- NOTE | 2019-01-17 10:49 | PN ---
Progress Note, Physician Chief Complaint: AWAKE ALERT EVENTS AND NOTES REVIEWED DENIES FEVER OR CHILLS - Current Medication List Current Medications: Active Medications Acetaminophen (Ofirmev Injection -) 1,000 mg IVPB Q6H PRN PRN Reason: PAIN OR FEVER Last Admin: 01/16/19 16:05 Dose: 1,000 mg Hydromorphone HCl (Dilaudid Logistics Team Leader -) 10 mg MACHINIST AUTOMOTIVE MACHINIST AUTOMOTIVE JAYCE; Protocol Stop: 01/21/19 14:33 Last Admin: 01/17/19 03:55 Dose: 10 mg Lactated Ringer's (Lactated Ringers Solution) 1,000 mls @ 75 mls/hr IV ASDIR JAYCE Last Admin: 01/17/19 09:11 Dose: 75 mls/hr Piperacillin Sod/Tazobactam (Sod 4.5 gm/ Dextrose) 100 mls @ 200 mls/hr IVPB Q8H-IV JAYCE; Protocol Last Admin: 01/17/19 09:11 Dose: 200 mls/hr - Objective Vital Signs: Vital Signs Temperature 98.8 F 01/17/19 05:57 Pulse Rate 59 L 01/17/19 10:01 Respiratory Rate 18 01/17/19 10:01 Blood Pressure 132/76 01/17/19 10:01 O2 Sat by Pulse Oximetry (%) 96 01/16/19 21:00 Constitutional: Yes: Mild Distress Eyes: Yes: WNL HENT: Yes: Other (NGT WITH DARK DRAINAGE) Neck: Yes: WNL Cardiovascular: Yes: WNL Respiratory: Yes: WNL Gastrointestinal: Yes: Soft, Tenderness Genitourinary: Yes: WNL Musculoskeletal: Yes: WNL Extremities: Yes: WNL Edema: No Peripheral Pulses WNL: Yes Integumentary: Yes: WNL Wound/Incision: Yes: Clean/Dry Neurological: Yes: WNL ...Motor Strength: WNL Psychiatric: Yes: WNL Labs: CBC, BMP 01/16/19 07:00 01/16/19 07:00 INR, PTT INR 1.54 (0.83-1.09) H 01/15/19 07:00 Problem List - Problems (1) Acute abdomen Code(s): R10.0 - ACUTE ABDOMEN (2) Perforated abdominal viscus Code(s): [id number] - (3) Peritonitis Code(s): K65.9 - PERITONITIS, UNSPECIFIED (4) Pneumoperitoneum Code(s): K66.8 - OTHER SPECIFIED DISORDERS OF PERITONEUM Assessment/Plan POD # 3 PERFORATED GI IV ABX PER ID NGT TO DRAIN OOB TO CHAIR DVT PROPHYLAXIS VENODYNE B/L CHECK LABS SURGERY EVAL INCENTIVE SPIROMETRY
[2019-01-17] MEDS: ACETAMINOPHEN 1000 MG/100 ML VIAL (NON FORMULARY) IVPB PRN (16:44)
[2019-01-18] MEDS: ACETAMINOPHEN 1000 MG/100 ML VIAL (NON FORMULARY) IVPB PRN ×2 (00:48→08:19)
[2019-01-18] MEDS ORDERED: PIPERACILLIN/TAZOBACTAM 4.5 GM VIAL IVPB ONE ×3 (02:31→17:15)
[2019-01-18] MEDS ORDERED: DEXTROSE 5%-WATER 100 ML IVPB ONE ×3 (02:31→17:15)
[2019-01-18] MEDS: PIPERACILLIN/TAZOB 4.5 GM 4.5 GM in DEXTROSE 5%-WATER 100 ML IVPB SCH ×3 (02:35→17:39)
[2019-01-18 07:03] LABS: HEMATOCRIT 40.8 % (35.4-49); HEMOGLOBIN 13.6 GM/dL (11.7-16.9); MCH 28.7 pg (25.7-33.7); MCHC 33.4 g/dl (32.0-35.9); MEAN CELL VOLUME 85.9 fl (80-96); MEAN PLT VOLUME 7.2 fl (7.5-11.1); PLATELET COUNT 344 K/MM3 (134-434); RBC 4.74 M/mm3 (4.00-5.60); RDW 15.4 % (11.9-15.9); WHITE BLOOD COUNT 5.9 K/mm3 (4.0-10.0)
[2019-01-18 07:36] LABS: BLOOD UREA NITROGEN 22 mg/dL (7-18); CHLORIDE 101 mmol/L (98-107); CO2 27 mmol/L (21-32); CREATININE 1.3 mg/dL (0.55-1.3); GLUCOSE,RANDOM 68 mg/dL (74-106); POTASSIUM 3.9 mmol/L (3.5-5.1); SODIUM 138 mmol/L (136-145)
[2019-01-18 07:37] LABS: ANION GAP 10 MMOL/L (8-16); CALCIUM 8.9 mg/dL (8.5-10.1); MAGNESIUM 2.1 mg/dL (1.8-2.4)
--- NOTE | 2019-01-18 09:41 | OP ---
DATE OF OPERATION: 01/14/2019 PREOPERATIVE DIAGNOSIS: Perforated viscus, peritonitis, and pneumoperitoneum. POSTOPERATIVE DIAGNOSIS: Perforated duodenal ulcer with peritonitis and intraabdominal abscess. OPERATIVE PROCEDURE: Diagnostic laparoscopy, laparotomy, plication and omental overlay of perforated duodenal ulcer, and peritoneal washout. SURGEON: Ibrahima Yap M.D. DIAGNOSTIC SALES SPECIALIST: Fany Snyder ANESTHESIA: General anesthesia. OPERATIVE DESCRIPTION: This 43-year-old man presented to the emergency room with complaints of severe sudden onset of abdominal pain with nausea and vomiting. Patient was found to have rigid abdomen. A CAT scan revealed pneumoperitoneum. It was not certain whether fluid collection was in the upper abdomen or lower down in the pelvis. The patient was hydrated, placed on antibiotics, and consent obtained for laparoscopy, possible laparotomy, and repair of the perforation. Patient had been on antibiotics Zosyn, alprazolam, tazobactam preoperatively and hydrated, and NG tube was placed. Patient was brought to the operating room, general anesthesia was administered. A Oliveira catheter was placed in the bladder. Abdomen painted and draped. Timeout was called. Incision was made in the left upper quadrant of the abdomen about 5 mm and a 5-mm trocar and Optiview was inserted in the abdominal cavity. However, there were many adhesions in the abdominal cavity, and it was difficult to create adequate pneumoperitoneum. It was therefore decided to do an incision in the infraumbilical portion of the umbilicus, it was deepened through skin, subcutaneous tissue, and the linea alba. Peritoneum was incised, and a 10 to 12-mm laparoscopic trocar was inserted into the abdominal cavity. The abdomen was inflated with CO2. There were multiple fluid collections in the pelvis in the left upper abdomen and the left lobe of the liver, as well as on the right side of the abdomen, with significant peritoneal exudate throughout the abdomen including the pelvis, the right side of the abdomen, and the left side of the abdomen as well, and including the upper abdomen. With the camera inserted in the abdominal cavity, the perforated ulcer noted on the anterior wall of the 1st portion of the duodenum. An attempt was made to plicate the ulcer laparoscopically; however, there was no adequate suture. It was then decided to convert this to an open laparotomy in view of the dense adhesions and inability to distend the abdominal cavity adequately. The abdomen was opened through upper midline abdominal incision. Fluid was sent for culture, and antibiotic sensitivity examination. There was bilious fluid in the pelvis, right upper quadrant of the abdomen, as well as both paracolic gutters. There was no foul smell. Abdominal cavity was thoroughly irrigated with normal saline. A self retaining catheter was introduced in the upper abdomen. The duodenum was brought into view retracting the liver. Three 2-0 Vicryl sutures were then placed across the ulcer; one above the ulcer, one across the equator or midline of the ulcer, another below the ulcer (perforation). The suture was passed without significant difficulty from the edge of the ulcer, brought into the perforation and reintroduced to the perforation to the opposite wall a 0.5 cm away. After putting in these sutures, they were approximated to plicate and close the perforation. When this was done, live omentum from the transverse colon was brought loosely and placed over the repair, and the 2-0 Vicryl was then tied to place omentum over the repair. Thus, creating an omental overlay. The NG tube was placed towards the pylorus. There was no leakage apparent. The abdominal cavity was then thoroughly irrigated with 3-4 L normal saline. Both on the right upper quadrant of the abdomen, left upper quadrant of the abdomen, the right and left paracolic gutter, the pelvis, as well as abdominal cavity. The small bowel was run all the way from the ligament of Treitz to the ileocecal valve. Once the abdominal cavity was thoroughly irrigated, and abdominal cavity was washed out, number 10 BRIAN drain was left in the subhepatic space adjacent to the perforated ulcer and brought out through a small stab wound in the right flank. The abdomen was closed with continuous number 1 PDS sutures. The drain was anchored with 2-0 nylon sutures. The skin was loosely approximated with buried 3-0 Vicryl sutures, with 3 sutures and in between the skin and subcutaneous tissue was left open. The wound was packed with iodoform gauze, and a dressing placed. Estimated blood loss less than 15 mL. Sponge count, instrument count correct. Abdominal x-ray was obtained and showed no foreign body. Patient was sent to the recovery room in satisfactory and stable condition. Payton [id number] cc: Abdi Basilio MD
--- NOTE | 2019-01-18 12:23 | PN ---
Progress Note, Physician Chief Complaint: Pneumoperitoneum Perforated Abdominal Viscus Abdominal Pain S/p History of Present Illness: Previous notes and events reviewed awake and alert NAD patient states pain is controlled--MAINTENANCE CONSTRUCTION HELPER pump discontinued POD #4 diagnostic laparoscopy, laparotomy, plication and omental overlay of perforated duodenal ulcer - Current Medication List Current Medications: Active Medications Acetaminophen (Ofirmev Injection -) 1,000 mg IVPB Q6H PRN PRN Reason: PAIN LEVEL 6-10 Lactated Ringer's (Lactated Ringers Solution) 1,000 mls @ 75 mls/hr IV ASDIR JAYCE Last Admin: 01/17/19 09:11 Dose: 75 mls/hr Piperacillin Sod/Tazobactam (Sod 4.5 gm/ Dextrose) 100 mls @ 200 mls/hr IVPB Q8H-IV JAYCE; Protocol Last Admin: 01/18/19 10:24 Dose: 200 mls/hr - Objective Vital Signs: Vital Signs Temperature 97.6 F 01/18/19 08:00 Pulse Rate 52 L 01/18/19 08:00 Respiratory Rate 18 01/18/19 08:00 Blood Pressure 136/91 01/18/19 08:00 O2 Sat by Pulse Oximetry (%) 96 01/16/19 21:00 Constitutional: Yes: No Distress, Calm Eyes: Yes: Conjunctiva Clear HENT: Yes: Atraumatic Cardiovascular: Yes: Regular Rate and Rhythm Respiratory: Yes: Regular, CTA Bilaterally Gastrointestinal: Yes: Normal Bowel Sounds, Soft Musculoskeletal: Yes: WNL Extremities: Yes: WNL Edema: No Wound/Incision: Yes: Dressing Dry and Intact Neurological: Yes: Alert, Oriented Psychiatric: Yes: Alert, Oriented Labs: CBC, BMP 01/18/19 06:50 01/18/19 06:50 INR, PTT INR 1.54 (0.83-1.09) H 01/15/19 07:00 Microbiology 01/14/19 10:10 Blood - Peripheral Venous Blood Culture - Preliminary NO GROWTH OBTAINED AFTER 72 HOURS, INCUBATION TO CONTINUE FOR 2 DAYS. 01/14/19 10:00 Blood - Peripheral Venous Blood Culture - Preliminary NO GROWTH OBTAINED AFTER 72 HOURS, INCUBATION TO CONTINUE FOR 2 DAYS. 01/14/19 19:00 Peritoneal Fluid Gram Stain - Final 01/14/19 19:00 Peritoneal Fluid Body Fluid Culture - Final NO GROWTH OF AEROBIC ORGANISMS AFTER 48 HOURS INCUBATION 01/14/19 19:00 Peritoneal Fluid Anaerobic Culture - Final NO ANAEROBES WERE ISOLATED 01/14/19 10:35 Urine - Urine Clean Catch Urine Culture - Final NO GROWTH OBTAINED Problem List - Problems (1) Perforated abdominal viscus Assessment/Plan: -POD #4 diagnostic laparoscopy, laparotomy, plication and omental overlay of perforated duodenal ulcer -Surgery and ID on board -NGT -NPO -IV Zosyn -body fluid culture negative -IV hydration -monitor BRIAN drainage output Code(s): [id number] - (2) Pneumoperitoneum Assessment/Plan: see above Code(s): K66.8 - OTHER SPECIFIED DISORDERS OF PERITONEUM Assessment/Plan see problem list dvt ppx
[2019-01-18] MEDS: LACTATED RINGERS SOLUTION 1,000 ML IV SCH (17:39)
--- NOTE | 2019-01-18 18:18 | PN ---
Progress Note, Physician - Current Medication List Current Medications: Active Medications Acetaminophen (Ofirmev Injection -) 1,000 mg IVPB Q6H PRN PRN Reason: PAIN LEVEL 6-10 Lactated Ringer's (Lactated Ringers Solution) 1,000 mls @ 75 mls/hr IV ASDIR JAYCE Last Admin: 01/18/19 17:39 Dose: 75 mls/hr Piperacillin Sod/Tazobactam (Sod 4.5 gm/ Dextrose) 100 mls @ 200 mls/hr IVPB Q8H-IV JAYCE; Protocol Last Admin: 01/18/19 17:39 Dose: 200 mls/hr - Objective Vital Signs: Vital Signs Temperature 98.0 F 01/18/19 14:53 Pulse Rate 62 01/18/19 14:53 Respiratory Rate 18 01/18/19 14:53 Blood Pressure 145/88 01/18/19 14:53 O2 Sat by Pulse Oximetry (%) 96 01/16/19 21:00 Labs: CBC, BMP 01/18/19 06:50 01/18/19 06:50 INR, PTT INR 1.54 (0.83-1.09) H 01/15/19 07:00 Problem List - Problems (1) Perforated abdominal viscus Code(s): [id number] - (2) Pneumoperitoneum Code(s): K66.8 - OTHER SPECIFIED DISORDERS OF PERITONEUM (3) Acute abdomen Code(s): R10.0 - ACUTE ABDOMEN (4) Peritonitis Code(s): K65.9 - PERITONITIS, UNSPECIFIED Assessment/Plan Surgery: patient is afebrile. Abdominal wound is clean , soft abdomen . BRIAN drainage 120 ml. Has been having bowel movements. gastrograffin g.i. study requested . If normal will resume feeding. Continue natbiotics.
[2019-01-19] MEDS ORDERED: PIPERACILLIN/TAZOBACTAM 4.5 GM VIAL IVPB ONE ×3 (02:33→17:08)
[2019-01-19] MEDS ORDERED: DEXTROSE 5%-WATER 100 ML IVPB ONE ×3 (02:34→17:09)
[2019-01-19] MEDS: PIPERACILLIN/TAZOB 4.5 GM 4.5 GM in DEXTROSE 5%-WATER 100 ML IVPB SCH ×3 (02:37→17:23)
[2019-01-19] MEDS: ACETAMINOPHEN 1000 MG/100 ML VIAL (NON FORMULARY) IVPB PRN ×2 (04:50→11:21)
[2019-01-19] MEDS: LACTATED RINGERS SOLUTION 1,000 ML IV SCH (05:38)
[2019-01-19 06:57] LABS: HEMATOCRIT 39.2 % (35.4-49); MCH 28.3 pg (25.7-33.7); MCHC 33.2 g/dl (32.0-35.9); MEAN CELL VOLUME 85.3 fl (80-96); MEAN PLT VOLUME 7.5 fl (7.5-11.1); PLATELET COUNT 356 K/MM3 (134-434); RDW 15.5 % (11.9-15.9); WHITE BLOOD COUNT 5.6 K/mm3 (4.0-10.0)
[2019-01-19 07:30] LABS: ALBUMIN 2.3 g/dl (3.4-5.0); ALK PHOS 47 U/L (45-117); ANION GAP 10 MMOL/L (8-16); BILIRUBIN,TOTAL 0.4 mg/dL (0.2-1); BLOOD UREA NITROGEN 19 mg/dL (7-18); CALCIUM 8.2 mg/dL (8.5-10.1); CHLORIDE 105 mmol/L (98-107); CO2 24 mmol/L (21-32); CREATININE 1.1 mg/dL (0.55-1.3); GLUCOSE,RANDOM 64 mg/dL (74-106); POTASSIUM 4.3 mmol/L (3.5-5.1); SGOT/AST 19 U/L (15-37); SGPT/ALT 22 U/L (13-61); SODIUM 138 mmol/L (136-145); TOT PROT 5.6 g/dl (6.4-8.2)
--- NOTE | 2019-01-19 11:02 | PN ---
Progress Note, Physician Chief Complaint: Patient has no complaints. - Current Medication List Current Medications: Active Medications Acetaminophen (Ofirmev Injection -) 1,000 mg IVPB Q6H PRN PRN Reason: PAIN LEVEL 6-10 Last Admin: 01/19/19 04:50 Dose: 1,000 mg Lactated Ringer's (Lactated Ringers Solution) 1,000 mls @ 75 mls/hr IV ASDIR JAYCE Last Admin: 01/19/19 05:38 Dose: 75 mls/hr Piperacillin Sod/Tazobactam (Sod 4.5 gm/ Dextrose) 100 mls @ 200 mls/hr IVPB Q8H-IV JAYCE; Protocol Last Admin: 01/19/19 10:17 Dose: 200 mls/hr - Objective Vital Signs: Vital Signs Temperature 98.8 F 01/19/19 10:15 Pulse Rate 57 L 01/19/19 10:15 Respiratory Rate 18 01/19/19 10:15 Blood Pressure 130/78 01/19/19 10:15 O2 Sat by Pulse Oximetry (%) 96 01/18/19 22:00 Labs: CBC, BMP 01/19/19 06:00 01/19/19 06:00 INR, PTT INR 1.54 (0.83-1.09) H 01/15/19 07:00 Problem List - Problems (1) Perforated abdominal viscus Code(s): [id number] - (2) Pneumoperitoneum Code(s): K66.8 - OTHER SPECIFIED DISORDERS OF PERITONEUM (3) Acute abdomen Code(s): R10.0 - ACUTE ABDOMEN (4) Peritonitis Code(s): K65.9 - PERITONITIS, UNSPECIFIED Assessment/Plan Patient is afebrile. Wound is clean. Drain : draining 80 ml of " murky' fluid. Gastrograffin study , shows no leak from the duodenum. NG tube removed . Will resume oral feeding. PO day # 5. Continue antibiotics. May shower.
--- NOTE | 2019-01-19 11:10 | PN ---
Progress Note, Physician Chief Complaint: Pneumoperitoneum Perforated Abdominal Viscus Abdominal Pain History of Present Illness: Operative Date: 01/14/19 Pre-Operative Diagnosis: Perforated viscus. Peritonitis. Pneumoperitoneum. Operation: Diagnostic laparoscopy ,. Laparotomy , plication and omental overlay of perforated duodenal ulcer and peritoneal wash out. Findings: Perforated ulcer on anterior wall of the first portion of the duodenum. Intrabadominal abscesses. Post-Operative Diagnosis: Other (Perforation of anterior wall of the first portion of the duodenum, peritonitis with intraabdominal abscess.) Surgeon: Ibrahima Yap Fire Hose Curer: Kamran Hurst Anesthesia: General Specimens Removed: Fluid from peritoneal cavity for culture. Estimated Blood Loss (mls): 25 Drains & Tubes with Location: No.10 BRIAN drain left in right subhepatic space. Operative Report Dictated: Yes post op day 5 NGT removed today oral intake restarted today, eating lunch now, tolerating well Denies any N/V Had 6 BM's in past 2 days, intermittent loose stools - Current Medication List Current Medications: Active Medications Acetaminophen (Ofirmev Injection -) 1,000 mg IVPB Q6H PRN PRN Reason: PAIN LEVEL 6-10 Last Admin: 01/19/19 04:50 Dose: 1,000 mg Lactated Ringer's (Lactated Ringers Solution) 1,000 mls @ 75 mls/hr IV ASDIR JAYCE Last Admin: 01/19/19 05:38 Dose: 75 mls/hr Piperacillin Sod/Tazobactam (Sod 4.5 gm/ Dextrose) 100 mls @ 200 mls/hr IVPB Q8H-IV JAYCE; Protocol Last Admin: 01/19/19 10:17 Dose: 200 mls/hr - Objective Vital Signs: Vital Signs Temperature 98.8 F 01/19/19 10:15 Pulse Rate 57 L 01/19/19 10:15 Respiratory Rate 18 01/19/19 10:15 Blood Pressure 130/78 01/19/19 10:15 O2 Sat by Pulse Oximetry (%) 96 01/18/19 22:00 Constitutional: Yes: Well Nourished, No Distress, Calm Cardiovascular: Yes: Regular Rate and Rhythm Respiratory: Yes: Regular Gastrointestinal: Yes: Normal Bowel Sounds, Tenderness (post op incisional) Genitourinary: Yes: WNL Musculoskeletal: Yes: WNL Extremities: Yes: WNL Edema: No Wound/Incision: Yes: Dressing Dry and Intact Neurological: Yes: Alert, Oriented Psychiatric: Yes: Alert, Oriented Labs: CBC, BMP 01/19/19 06:00 01/19/19 06:00 INR, PTT INR 1.54 (0.83-1.09) H 01/15/19 07:00 Problem List - Problems (1) History of substance abuse Assessment/Plan: -Urine tox positive for oxycodone and marijuana Code(s): Z87.898 - PERSONAL HISTORY OF OTHER SPECIFIED CONDITIONS Assessment/Plan (1) Perforated abdominal viscus Assessment/Plan: -POD #5 diagnostic laparoscopy, laparotomy, plication and omental overlay of perforated duodenal ulcer -Surgery and ID on board -NGT removed by surgery -full liquid diet-tolerating well -Advance diet as tolerated -IV Zosyn -body fluid culture negative -discontinue IV hydration- encouraged PO fluids -monitor BRIAN drainage output Code(s): [id number] - (2) Pneumoperitoneum Assessment/Plan: see above Code(s): K66.8 - OTHER SPECIFIED DISORDERS OF PERITONEUM
[2019-01-19] MEDS: ACETAMINOPHEN 325 MG TABLET (FP) PO PRN (23:00)
[2019-01-20] MEDS ORDERED: PIPERACILLIN/TAZOBACTAM 4.5 GM VIAL IVPB ONE ×2 (02:29→09:50)
[2019-01-20] MEDS ORDERED: DEXTROSE 5%-WATER 100 ML IVPB ONE ×2 (02:30→09:50)
[2019-01-20] MEDS: PIPERACILLIN/TAZOB 4.5 GM 4.5 GM in DEXTROSE 5%-WATER 100 ML IVPB SCH ×2 (02:55→09:53)
[2019-01-20] MEDS: ACETAMINOPHEN 325 MG TABLET (FP) PO PRN ×3 (03:17→11:50)
--- NOTE | 2019-01-20 11:04 | PN ---
Progress Note, Physician Chief Complaint: Pneumoperitoneum Perforated Abdominal Viscus Abdominal Pain History of Present Illness: Operative Date: 01/14/19 Pre-Operative Diagnosis: Perforated viscus. Peritonitis. Pneumoperitoneum. Operation: Diagnostic laparoscopy ,. Laparotomy , plication and omental overlay of perforated duodenal ulcer and peritoneal wash out. Findings: Perforated ulcer on anterior wall of the first portion of the duodenum. Intrabadominal abscesses. Post-Operative Diagnosis: Other (Perforation of anterior wall of the first portion of the duodenum, peritonitis with intraabdominal abscess.) Surgeon: Ibrahima Yap Nursing Education Consultant: Kamran Hurst Anesthesia: General Specimens Removed: Fluid from peritoneal cavity for culture. Estimated Blood Loss (mls): 25 Drains & Tubes with Location: No.10 BRIAN drain left in right subhepatic space. Operative Report Dictated: Yes post op day 6 Tolerating po intake Denies any N/V - Current Medication List Current Medications: Active Medications Acetaminophen (Tylenol -) 650 mg PO Q4H PRN PRN Reason: PAIN OR FEVER Last Admin: 01/20/19 07:49 Dose: 650 mg Piperacillin Sod/Tazobactam (Sod 4.5 gm/ Dextrose) 100 mls @ 200 mls/hr IVPB Q8H-IV JAYCE; Protocol Last Admin: 01/20/19 09:53 Dose: 200 mls/hr - Objective Vital Signs: Vital Signs Temperature 98.6 F 01/20/19 05:40 Pulse Rate 51 L 01/20/19 05:40 Respiratory Rate 20 01/20/19 05:40 Blood Pressure 121/77 01/20/19 05:40 O2 Sat by Pulse Oximetry (%) 96 01/19/19 21:00 Constitutional: Yes: Well Nourished, No Distress, Calm Cardiovascular: Yes: Regular Rate and Rhythm Respiratory: Yes: Regular Gastrointestinal: Yes: WNL, Tenderness (incisional) Genitourinary: Yes: WNL Musculoskeletal: Yes: WNL Extremities: Yes: WNL Edema: No Peripheral Pulses WNL: Yes Wound/Incision: Yes: Dressing Dry and Intact Neurological: Yes: Alert, Oriented Psychiatric: Yes: Alert, Oriented Labs: CBC, BMP 01/19/19 06:00 01/19/19 06:00 INR, PTT INR 1.54 (0.83-1.09) H 04/19/19 07:00 Problem List - Problems (1) History of substance abuse Assessment/Plan: -Urine tox positive for oxycodone and marijuana Code(s): Z87.898 - PERSONAL HISTORY OF OTHER SPECIFIED CONDITIONS Assessment/Plan (1) Perforated abdominal viscus Assessment/Plan: -POD #5 diagnostic laparoscopy, laparotomy, plication and omental overlay of perforated duodenal ulcer -Surgery and ID on board -Advance diet as tolerated -IV Zosyn -body fluid culture negative -discontinue IV hydration- encouraged PO fluids -monitor BRIAN drainage output -Discharge once cleared by surgery Code(s): [id number] - (2) Pneumoperitoneum Assessment/Plan: see above Code(s): K66.8 - OTHER SPECIFIED DISORDERS OF PERITONEUM
--- NOTE | 2019-01-20 12:02 | PN ---
Progress Note, Physician - Current Medication List Current Medications: Active Medications Acetaminophen (Tylenol -) 650 mg PO Q4H PRN PRN Reason: PAIN OR FEVER Last Admin: 01/20/19 11:50 Dose: 650 mg Piperacillin Sod/Tazobactam (Sod 4.5 gm/ Dextrose) 100 mls @ 200 mls/hr IVPB Q8H-IV JAYCE; Protocol Last Admin: 01/20/19 09:53 Dose: 200 mls/hr - Objective Vital Signs: Vital Signs Temperature 98.6 F 01/20/19 05:40 Pulse Rate 51 L 01/20/19 05:40 Respiratory Rate 20 01/20/19 05:40 Blood Pressure 121/77 01/20/19 05:40 O2 Sat by Pulse Oximetry (%) 96 01/19/19 21:00 Labs: CBC, BMP 01/19/19 06:00 01/19/19 06:00 INR, PTT INR 1.54 (0.83-1.09) H 01/15/19 07:00 Problem List - Problems (1) Perforated abdominal viscus Code(s): [id number] - (2) Pneumoperitoneum Code(s): K66.8 - OTHER SPECIFIED DISORDERS OF PERITONEUM (3) Acute abdomen Code(s): R10.0 - ACUTE ABDOMEN (4) Peritonitis Code(s): K65.9 - PERITONITIS, UNSPECIFIED Assessment/Plan Surgery: Patient is afebrile. Wound is clean, no drainage. Drain is removed. Tolerating diet. Plan : discharge home, Patient instructed not to take aspirin , motrin , alcohol. Follow up in the office.
[2019-01-20 12:50] VITALS: BP 126/77; PULSE 56; TEMP 98.4
== END 2019-01-20 13:22 | disposition home or self-care (01) | DRG 220 ==
LOC: JER 09:04 → JERBED 13:15 → J6S 15:40
PROVIDERS: ADMIT Family Medicine; ATTEND Family Medicine
PROC: 3E1M38Z Irrigation of Peritoneal Cavity using Irrigating Substance, Percutaneous Approach (ICD-10-PCS; 2019-01-14)
PROC: 0DQ90ZZ Repair Duodenum, Open Approach (ICD-10-PCS; principal; 2019-01-14 16:30)
PROC: 0WJJ4ZZ Inspection of Pelvic Cavity, Percutaneous Endoscopic Approach (ICD-10-PCS; 2019-01-14 16:30)
DX: K26.5 Chronic or unspecified duodenal ulcer with perforation (principal); K65.1 Peritoneal abscess; K65.9 Peritonitis, unspecified; F12.10 Cannabis abuse, uncomplicated; J45.909 Unspecified asthma, uncomplicated; Z53.31 Laparoscopic surgical procedure converted to open procedure; F11.10 Opioid abuse, uncomplicated
CPT/HCPCS: 36415; 71045-TC-FY; 74018-TC-FY; 74177-TC; 74240-TC-FY; 80048; 80053; 80307; 81003; 83605; 83690; 83735; 84100; 85025; 85027; 85610; 85730; 86850; 86900; 86901; 87040; 87070; 87075; 87086; 87205; 93005; 93010; 94010; 94760; 97116-GP; 97161-GP; 99285-25; J0131; J7030

== ENCOUNTER 2019-03-03 11:15 | Emergency (ER) | payer OTHER | END 2019-03-03 12:17 | disposition home or self-care (01) | LOC: JER 11:15 ==